=== PATIENT | male | born 1990 | race Caucasian/White ===

== ENCOUNTER 2016-09-28 15:32 | Emergency (ER) | payer SELFPAY ==
[2016-09-28] MEDS ORDERED: PROMETHAZINE HCL 25 MG TABLET PO ONE (15:45)
[2016-09-28] MEDS ORDERED: DIPHENHYDRAMINE HCL 50 MG CAPSULE PO ONE (15:45)
--- NOTE | 2016-09-28 15:45 | ER Document Report ---
ED Medical Screen (RME) - General Stated Complaint: HEADACHE Notes: 25 yo male c/o male c/o right sided headache x 12h. no relief with exedrin, sleep no relief. no fever, + photosensitivity, + nausea. no neck pain. typical headache for patient. + floaters
[2016-09-28 15:47] VITALS: BP 136/95
== END 2016-09-28 18:57 | disposition left against medical advice (07) ==
LOC: ER 15:32
DX: Z53.9 Procedure and treatment not carried out, unspecified reason (principal); R51 Headache; R11.0 Nausea
CPT/HCPCS: 99281

== ENCOUNTER 2018-04-27 13:42 | Emergency (ER) | payer OTHER ==
--- NOTE | 2018-04-27 14:40 | ER Document Report ---
ED Medical Screen (RME) - General Chief Complaint: Diarrhea Stated Complaint: ABDOMINAL PAIN Time Seen by Provider: 04/27/18 14:38 Mode of Arrival: Ambulatory Information source: Patient, Relative TRAVEL OUTSIDE OF THE [place] IN LAST 30 DAYS: No - HPI Patient complains to provider of: abd pain Onset: This morning - pt with onset of bloody diarrhea and abdominal pain early this am - Related Data Allergies/Adverse Reactions: trazodone Allergy (Verified 04/27/18 13:44) Past Medical History Renal/ Medical History: Denies: Hx Peritoneal Dialysis Physical Exam - Vital signs Vitals: Temp Pulse Resp BP Pulse Ox 98.8 F 67 16 140/91 H 100 04/27/18 13:52 04/27/18 13:52 04/27/18 13:52 04/27/18 13:52 04/27/18 13:52 Course - Vital Signs Vital signs: Temp Pulse Resp BP Pulse Ox 98.8 F 67 16 140/91 H 100 04/27/18 13:52 04/27/18 13:52 04/27/18 13:52 04/27/18 13:52 04/27/18 13:52
[2018-04-27 15:12] LABS: ABSOLUTE EOSINOPHILS # (AUTO) 0.1 10^3/uL (0.0-0.6); ABSOLUTE LYMPHOCYTES (AUTO) 1.8 10^3/uL (0.5-4.7); ABSOLUTE MONOCYTES (AUTO) 0.5 10^3/uL (0.1-1.4); ABSOLUTE NEUT (AUTO) 6.2 10^3/uL (1.7-8.2); BASOPHILS % (AUTO) 0.5 % (0-2); EOSINOPHILS % (AUTO) 0.8 % (0-6); HEMATOCRIT 44.6 % (37.9-51.0); HEMOGLOBIN 15.4 g/dL (13.5-17.0); LYMPHOCYTES % (AUTO) 20.6 % (13-45); MEAN CORPUSCULAR HEMOGLOBIN 29.9 pg (27.0-33.4); MEAN CORPUSCULAR HGB CONC 34.6 g/dL (32.0-36.0); MEAN CORPUSCULAR VOLUME 87 fl (80-97); MONOCYTES % (AUTO) 5.5 % (3-13); PLATELET COUNT 273 10^3/uL (150-450); RED BLOOD COUNT 5.15 10^6/uL (4.35-5.55); RED CELL DISTRIBUTION WIDTH 12.4 % (11.5-14.0); SEGMENTED NEUTROPHILS % (AUTO) 72.6 % (42-78); TOTAL CELLS COUNTED % (AUTO) 100 %; WHITE BLOOD COUNT 8.6 10^3/uL (4.0-10.5)
--- NOTE | 2018-04-27 15:25 | RADIOLOGY REPORT (SQ) ---
EXAM DESCRIPTION: ACUTE ABDOMEN SERIES COMPLETED DATE/TIME: 04/27/2018 3:07 pm REASON FOR STUDY: abd pain COMPARISON: None. NUMBER OF VIEWS: Three views. TECHNIQUE: Frontal chest, supine abdomen and upright/decubitus abdomen radiographic images acquired. LIMITATIONS: None. FINDINGS: CHEST: Lungs clear of infiltrates. FREE AIR: None. No abnormal gas collections. BOWEL GAS PATTERN: Nonobstructive pattern. No dilated loops or air fluid levels. CALCIFICATIONS: No suspicious calcifications. HARDWARE: None in the abdomen. SOFT TISSUES: No gross mass or suggestion of organomegaly. BONES: No acute fracture. No worrisome bone lesions. OTHER: No other significant finding. IMPRESSION: 1. No acute radiographic finding in the chest. 2. NO RADIOGRAPHIC EVIDENCE FOR ACUTE ABDOMINAL DISEASE. TECHNICAL DOCUMENTATION: JOB ID: [id number] [email or web address]- All Rights Reserved Reading location - IP/workstation name: [email or web address]
[2018-04-27 15:33] LABS: APPEARANCE,URINE CLEAR; BILIRUBIN,URINE NEGATIVE (NEGATIVE); COLOR,URINE YELLOW; GLUCOSE, URINE NEGATIVE (NEGATIVE); KETONES,URINE NEGATIVE (NEGATIVE); LEUKOCYTE ESTERASE,URINE NEGATIVE (NEGATIVE); NITRITE,URINE NEGATIVE (NEGATIVE); PROTEIN,URINE NEGATIVE (NEGATIVE); UROBILINOGEN,URINE NEGATIVE mg/dL (<2.0)
[2018-04-27 15:34] LABS: ALANINE AMINOTRANSFERASE 105 U/L (21-72); ALBUMIN 4.9 g/dL (3.5-5.0); ALKALINE PHOSPHATASE 69 U/L (38-126); ANION GAP 11 (5-19); ASPARTATE AMINO TRANSFERASE 59 U/L (17-59); BILIRUBIN,DIRECT 0.2 mg/dL (0.0-0.4); BILIRUBIN,TOTAL 0.8 mg/dL (0.2-1.3); BLOOD UREA NITROGEN 10 mg/dL (7-20); CALCIUM 10.7 mg/dL (8.4-10.2); CARBON DIOXIDE 28 mmol/L (22-30); CHLORIDE 102 mmol/L (98-107); GLUCOSE 91 mg/dL (75-110); LIPASE 84.3 U/L (23-300); POTASSIUM 4.5 mmol/L (3.6-5.0); SODIUM 141.1 mmol/L (137-145); TOTAL PROTEIN 8.3 g/dL (6.3-8.2)
--- NOTE | 2018-04-27 17:08 | ER Document Report ---
ED GI/ - General Chief Complaint: Diarrhea Stated Complaint: ABDOMINAL PAIN Time Seen by Provider: 04/27/18 14:38 Mode of Arrival: Ambulatory Information source: Patient Notes: 27-year-old non-smoker, occasional marijuana, heterosexual with no anal intercourse, rare EtOH. Normally healthy male woke up with crampy abdominal pain at 2:00 this morning. After one diarrhea stool he started having red blood in each diarrhea episodes. It started every hour and a half and now is about every hour. Was mild nausea but no vomiting. The nausea has subsided. his last episode was at 4 PM in the emergency department and saw blood that was red and cloudy with some water around it. He has intermittent abdominal cramping and low back pain. No history of Crohn's ulcerative colitis. No abdominal surgeries. He started having anal pain this morning at 10:00. No recent antibiotics, no history of C. difficile. TRAVEL OUTSIDE OF THE [place] IN LAST 30 DAYS: No - Related Data Allergies/Adverse Reactions: trazodone Allergy (Verified 04/27/18 13:44) Past Medical History - General Information source: Patient, Relative - mom - Social History Smoking Status: Never Smoker Frequency of alcohol use: Social Drug Abuse: Marijuana - rare Occupation: college student Lives with: Parents Family History: Other - cousin with crohns Patient has suicidal ideation: No Patient has homicidal ideation: No Renal/ Medical History: Denies: Hx Peritoneal Dialysis Psychiatric Medical History: Reports: Hx Depression - anxiety and panic disorder Past Surgical History: Reports: Hx Oral Surgery - wisdom teeth Review of Systems - Review of Systems Constitutional: No symptoms reported EENT: No symptoms reported Cardiovascular: No symptoms reported Respiratory: No symptoms reported Gastrointestinal: See HPI Genitourinary: No symptoms reported Male Genitourinary: No symptoms reported Musculoskeletal: No symptoms reported Skin: No symptoms reported Hematologic/Lymphatic: No symptoms reported Neurological/Psychological: No symptoms reported Physical Exam - Vital signs Vitals: Temp Pulse Resp BP Pulse Ox 98.8 F 67 16 140/91 H 100 04/27/18 13:52 04/27/18 13:52 04/27/18 13:52 04/27/18 13:52 04/27/18 13:52 Interpretation: Normal - General General appearance: Appears well, Alert - HEENT Head: Normocephalic, Atraumatic Eyes: Normal Conjunctiva: Normal Pupils: PERRL Mucous membranes: Normal Pharynx: Normal Neck: Supple - Respiratory Respiratory status: No respiratory distress Chest status: Nontender Breath sounds: Normal Chest palpation: Normal - Cardiovascular Rhythm: Regular Heart sounds: Normal auscultation Murmur: No - Abdominal Inspection: Normal Distension: No distension Bowel sounds: Normal Tenderness: Tender - diffuse left and right lower quadrant. No: Guarding, Rebound Organomegaly: No organomegaly - Rectal Tenderness: No Stool: Heme negative, Other - scant tinge of yellow Hemorrhoids: None - Back Back: Normal, Nontender. No: CVA tenderness - Extremities General upper extremity: Normal inspection, Nontender, Normal color, Normal ROM , Normal temperature General lower extremity: Normal inspection, Nontender, Normal color, Normal ROM , Normal temperature, Normal weight bearing. No: Torres's sign - Neurological Neuro grossly intact: Yes Cognition: Normal Orientation: AAOx4 Ivor Coma Scale Eye Opening: Spontaneous Myron Coma Scale Verbal: Oriented Myron Coma Scale Motor: Obeys Commands Ivor Coma Scale Total: 15 Speech: Normal Motor strength normal: LUE, RUE, LLE, RLE Sensory: Normal - Psychological Associated symptoms: Normal affect, Normal mood - Skin Skin Temperature: Warm Skin Moisture: Dry Skin Color: Normal Course - Re-evaluation Re-evalutation: 04/27/18 19:[address] now. Unable to produce enough stool specimen for C. difficile Gram stain and culture 04/27/18 20:[address], had diarrhea with only 1 drop of darker blood, much less than when he arrived today. 04/27/18 20:22 CT scan shows significant wall thickening in the lower descending and sigmoid colon measuring up to 1.4 cm in wall thickness this is consistent with infectious or inflammatory or infiltrating disease no obstruction or free fluid. I have ordered Flagyl and Cipro and will consult Dr. Olvera for the plan of antibiotic tx and follow up with ice carver. - Vital Signs Vital signs: Temp Pulse Resp BP Pulse Ox 98.8 F 67 16 140/91 H 100 04/27/18 13:52 04/27/18 13:52 04/27/18 13:52 04/27/18 13:52 04/27/18 13:52 - Laboratory Result Diagrams: 04/27/18 14:45 04/27/18 14:45 Laboratory results interpreted by me: 04/27/18 14:45 Calcium 10.7 H ALT 105 H Total Protein 8.3 H Discharge - Discharge Clinical Impression: lower GI bleeding by history, crampy abdominal pain, inflammatory bowel Diarrhea Qualifiers: Diarrhea type: unspecified type Qualified Code(s): R19.7 - Diarrhea, unspecified Condition: Good Disposition: HOME, SELF-CARE Instructions: Abdominal Pain ([facility]), Diarrhea, Nonspecific ([facility]), Rectal Bleeding, Unclear Cause ([facility]), Ciprofloxacin ([facility]), Metronidazole ([facility]) Additional Instructions: Call Monday for a gastroenterology appointment and evaluation Return to the emergency room if any bleeding recurs, worsening symptoms No alcohol when you take the Flagyl Ciprofloxacin 500 mg 3 times a day Flagyl 500 mg every 6 hours Prescriptions: Ciprofloxacin HCl [Cipro 500 mg Tablet] 500 mg PO TID #30 tablet Metronidazole [Flagyl 500 mg Tablet] 500 mg PO Q6H #40 tablet Referrals: SANTIAGO SALGUERO MD [ACTIVE STAFF] - 04/30/18
[2018-04-27 17:42] LABS: INTERNATIONAL RATION (INR) 0.95; PROTHROMBIN TIME 13.2 SEC (11.4-15.4)
[2018-04-27 17:43] LABS: PARTIAL THROMBOPLASTIN TIME 25.3 SEC (23.5-35.8)
--- NOTE | 2018-04-27 20:19 | RADIOLOGY REPORT (SQ) ---
EXAM DESCRIPTION: CT ABD/PELVIS WITH IV ORAL COMPLETED DATE/TIME: 04/27/2018 7:53 pm REASON FOR STUDY: crampy abd pain, lower gi bleed COMPARISON: None. TECHNIQUE: CT scan of the abdomen and pelvis performed using helical scanning technique with dynamic intravenous contrast injection and oral contrast. Images reviewed with lung, soft tissue, and bone w indows. Reconstructed coronal and sagittal MPR images reviewed. Delayed images for evaluation of the urinary system also acquired. All images stored on PACS. All CT scanners at this facility use dose modulation, iterative reconstruction, and/or weight based d osing when appropriate to reduce radiation dose to as low as reasonably achievable (ALARA). [facility]: Dose Right [facility]: CareDose [facility]: Dose Right [facility]: Teradose 4D [facility]: Domee CONTRAST TYPE AND DOSE: contrast/concentration: Isovue 350.00 mg/ml; Total Contrast Delivered: 69.0 ml; Total Saline Delivered: 40.0 ml RENAL FUNCTION: None required. The patient is less than 50 years old. RADIATION DOSE: CT Rad equipment meets quality standard of care and radiation dose reduction techniq ues were employed. CTDIvol: 4.9 - 5.8 mGy. DLP: 543 mGy-cm.. LIMITATIONS: None. FINDINGS: LOWER CHEST: No significant findings. LIVER: Normal size. No enhancing masses. No dilated ducts. SPLEEN: Normal size. No focal lesions. PANCREAS: No masses identified. No significant calcifications. No adjacent inflammation or peripancre atic fluid collections. Pancreatic duct not dilated. GALLBLADDER: No calcified stones. No inflammatory changes to suggest cholecystitis. ADRENAL GLANDS: No significant masses. RIGHT KIDNEY AND URETER: No cysts identified. No solid masses identified. No calcified stones. No hyd ronephrosis or hydroureter. LEFT KIDNEY AND URETER: No cysts identified. No solid masses identified. No calcified stones. No hydr onephrosis or hydroureter. AORTA AND VESSELS: No aneurysm. No dissection. Renal arteries, SMA, celiac without significant stenos is. RETROPERITONEUM: No bulky retroperitoneal adenopathy. BOWEL AND PERITONEAL CAVITY: Significant wall thickening in the lower descending and sigmoid colon me asuring up to 1.4 cm in wall thickness, this is consistent with infectious/ inflammatory or infiltrat ing disease. No obstruction or free fluid. APPENDIX: Normal. PELVIS: No mass. No free fluid. Unremarkable bladder. ABDOMINAL WALL: No masses. No hernias. BONES: No acute findings. OTHER: No other significant finding. IMPRESSION: Significant wall thickening in the lower descending and sigmoid colon measuring up to 1. 4 cm in wall thickness, this is consistent with infectious/ inflammatory or infiltrating disease. No obstruction or free fluid. TECHNICAL DOCUMENTATION: JOB ID: [id number] Quality ID # [id number]: Final reports with documentation of one or more dose reduction techniques (e.g., Au tomated exposure control, adjustment of the mA and/or kV according to patient size, use of iterative reconstruction technique) 2010 [employer]- All Rights Reserved Reading location - IP/workstation name: [email or web address]
[2018-04-27] MEDS ORDERED: CIPROFLOXACIN HCL 500 MG TABLET PO ONE (20:22)
[2018-04-27] MEDS ORDERED: METRONIDAZOLE 500 MG TABLET PO ONE (20:22)
[2018-04-27 20:40] VITALS: BP 132/91
== END 2018-04-27 20:58 | disposition home or self-care (01) ==
LOC: ER 13:42
DX: K52.9 Noninfective gastroenteritis and colitis, unspecified (principal); K92.1 Melena; R11.0 Nausea; M54.5 Low back pain; R10.9 Unspecified abdominal pain; R10.813 Right lower quadrant abdominal tenderness; R10.814 Left lower quadrant abdominal tenderness; K62.89 Other specified diseases of anus and rectum; F12.10 Cannabis abuse, uncomplicated; Z87.19 Personal history of other diseases of the digestive system; Z88.8 Allergy status to other drugs, medicaments and biological substances
CPT/HCPCS: 36415; 74022; 74177; 80053; 81001; 82272; 83690; 85025; 85610; 85730; 99284